=== PATIENT | female | born 1975 | race Caucasian/White ===

== ENCOUNTER 2021-09-14 19:04 | Emergency (ER) | payer MEDICAID ==
[~2021-09-14] VITALS: Ht 165.1 cm; Wt 50.0 kg
[2021-09-14 19:36] VITALS: BP 149/88
[2021-09-14] MEDS ORDERED: SODIUM CHLORIDE 0.9% 1,000 ML IV ONE (20:15)
[2021-09-14] MEDS ORDERED: ONDANSETRON HCL 4 MG/2 ML VIAL IVP ONE (20:15)
== END 2021-09-14 23:01 | disposition left against medical advice (07) ==
LOC: EDBD 19:09 → EMS 19:09
DX: R41.82 Altered mental status, unspecified (principal)
CPT/HCPCS: 99283